=== PATIENT | male | born 1965 | race Caucasian/White ===

== ENCOUNTER 2017-09-07 14:30 | Emergency (ER) | payer BC ==
--- NOTE | 2017-09-07 16:43 | UC ---
Skin Complaint HPI - HPI Summary HPI Summary: 51 yo male squeezed what he thought was a pimple on his right ring finger 2 days ago marked increase in pain past 12-24 hours marked dorsal hand edema redness can't fully straighten right ring finger felt feverish nausea hx bladder CA one kidney - History of Current Complaint Chief Complaint: UCGeneralIllness Time Seen by Provider: 09/07/17 16:20 Stated Complaint: RT RING FINGER CONCERN Hx Obtained From: Patient Onset/Duration: Gradual Onset, Lasting Days Timing: Constant Onset Severity: Mild Current Severity: Severe Pain Intensity: 8 Pain Scale Used: 0-10 Numeric Location: Discrete Character: Swelling, Pain, Redness, Raised Aggravating Factor(s): Touch, Other - pain worse when dependent/better elevated Associated Signs & Symptoms: Positive: Nausea, Fever - ?, Tenderness - Allergy/Home Medications Allergies/Adverse Reactions: Allergies Allergy/AdvReac Type Severity Reaction Status Date / Time NSAIDS (Non-Steroidal Allergy See Comment Verified 09/07/17 14:59 Anti-Inflamma Home Medications: Home Medications ALPRAZolam [Alprazolam Xr] 2 mg PO DAILY 09/07/17 [History Confirmed 09/07/17] Bisacodyl [Dulcolax] 1 tab DAILY 09/07/17 [History Confirmed 09/07/17] Cholecalciferol TAB* [Vitamin D TAB*] 1 tab DAILY 09/07/17 [History Confirmed ] Folic Acid TAB* [Folvite TAB*] 1 tab DAILY 09/07/17 [History Confirmed 09/07/17] HYDROcodone/ACETAMIN 5-325 MG* [[place] 5-325 TAB*] 1 - 2 tab PO Q6H PRN 09/07/17 [History Confirmed 09/07/17] Sodium Bicarbonate 3 tab BID 09/07/17 [History Confirmed 09/07/17] Venlafaxine ER (NF) [Effexor ER (NF)] 150 mg QAM 09/07/17 [History Confirmed ] Venlafaxine EXT RELEASE CAP* [Effexor Xr CAP*] 75 mg QAM 09/07/17 [History Confirmed 09/07/17] busPIRone TAB* [Buspar TAB*] 1 tab DAILY 09/07/17 [History Confirmed 09/07/17] raNITIdine HCl [Acid [employer] Re[employer]ist] 1 tab DAILY 09/07/17 [History Confirmed 09/07/17] Review of Systems Constitutional: Fever - stewatr Skin: Negative Eyes: Negative ENT: Negative Respiratory: Negative Cardiovascular: Negative Gastrointestinal: Nausea Genitourinary: Negative Motor: Negative Neurovascular: Negative Musculoskeletal: Negative Neurological: Negative Psychological: Negative Is Patient Immunocompromised?: No All Other Systems Reviewed And Are Negative: Yes PMH/Surg Hx/FS Hx/Imm Hx Previously Healthy: Yes Cancer History: Other Other Cancer History: bladder - Surgical History Surgical History: Yes Surgery Procedure, Year, and Place: bladder, kidney, ureter, prostate removed d/ t cx; neobladder. hernia repair - Family History Known Family History: Positive: Hypertension - Social History Alcohol Use: Occasionally Substance Use Type: None Smoking Status (MU): Never Smoked Tobacco Physical Exam Triage Information Reviewed: Yes Appearance: Well-Appearing, No Pain Distress, Well-Nourished Vital Signs: Initial Vital Signs Temp 98.6 F 09/07/17 15:25 Pulse 78 09/07/17 15:25 Resp 16 09/07/17 15:25 BP 152/105 09/07/17 15:25 Pulse Ox 99 09/07/17 15:25 Vital Signs Reviewed: Yes Eyes: Positive: Conjunctiva Inflamed ENT: Positive: Pharynx normal, Uvula midline. Negative: Nasal congestion, Nasal drainage, Tonsillar swelling, Tonsillar exudate, Muffled voice, Hoarse voice, Dental tenderness, Sinus tenderness Neck: Positive: Supple, Nontender, No Lymphadenopathy Respiratory: Positive: Lungs clear, Normal breath sounds, No respiratory distress Cardiovascular: Positive: RRR, Pulses Normal Musculoskeletal: Positive: Other: - see image Psychological Exam: Normal Skin Exam: Other - see image Course/Dx - Course Course Of Treatment: discussed with Dr. Boateng. to ER for further evaluation - Diagnoses Provider Diagnoses: right hand infection Discharge - Discharge Plan Condition: Stable Disposition: TRANS HIGHER L OF CARE FAC Referrals: No Primary Care Phys,NOPCP [Primary Care Provider] - () Additional Instructions: to [facility] ER I spoke to the ER attending physician and they are expecting you Images Hands: 1 - tender swollen 2 - moderate dorsal hand edema and redness
== END 2017-09-07 16:40 | disposition short-term general hospital (02) ==
LOC: UCCORT 14:30
DX: L08.9 Local infection of the skin and subcutaneous tissue, unspecified (principal)
CPT/HCPCS: 99202; G0463